=== PATIENT | male | born 1985 | race Caucasian/White ===

== ENCOUNTER 2017-07-02 15:08 | Inpatient (IN) | payer OTHER ==
[~2017-07-02] VITALS: Ht 165.1 cm; Wt 105.2 kg
--- NOTE | 2017-07-02 17:51 | ERA ---
ER Documentation Chief Complaint Date/Time DATE: 07/02/17 TIME: 17:49 Chief Complaint sob when laying down, sent by pmd HPI Is a 32-year-old male with no known medical history sent from primary care clinic to the ER for gradual onset, constant, moderate shortness of breath when lying down at night for the last month. He reports that he awakes in the middle the night after lying flat for minutes to hours with shortness of breath and that his symptoms improve when he sits up. He denies chest pain. He reports having mild nonproductive cough. He reports bilateral posterior shoulder pain. He reports normal urine output. He states that he was told that he has an enlarged heart on x-ray at the clinic today. He reports that he was told he had elevated blood pressure. The last time he saw PMD was more than 5 years ago. ROS All systems reviewed and are negative except as per history of present illness. Medications Home Meds Unable to Obtain Active Prescriptions or Reported Meds Allergies Allergies: Coded Allergies: No Known Allergy (Unverified , 07/02/17) PMhx/Soc Past medical history: None Past surgical history: None Social history: Denies tobacco, drinks occasional alcohol, denies illicit drugs FmHx Family History: diabetes, No coronary disease Physical Exam Vitals Vital Signs Date Time Temp Pulse Resp B/P Pulse Ox O2 Delivery O2 Flow Rate FiO2 07/02/17 21:45 99.0 93 18 143/94 97 Room Air 07/02/17 20:45 98.8 91 16 133/79 98 Room Air 07/02/17 19:46 98.5 100 18 154/121 97 Room Air 07/02/17 18:30 98.8 102 20 167/131 97 Room Air 07/02/17 18:13 2.0 07/02/17 15:29 98.8 104 20 173/117 97 Physical Exam Const: Alert, no acute distress Head: Atraumatic Eyes: Normal Conjunctiva, No pallor, no icterus ENT: Normal External Ears, Nose and Mouth. Mucous membranes moist Neck: Full range of motion..~ No meningismus. Resp: Clear to auscultation bilaterally, No wheezes, no rales Cardio: Regular rate and rhythm, no murmurs Abd: Soft, non tender, non distended. Skin: No petechiae or rashes Back: No midline or flank tenderness Ext: No cyanosis, or edema Neur: Awake and alert, Cranial nerves II through XII intact bilaterally, strength and sensation full in 4 extremities. Psych: Normal Mood and Affect Result Diagram: 07/02/17 1800 07/02/17 1800 Results 24 hrs Laboratory Tests Test 07/02/17 18:00 White Blood Count 13.110^3/ul Red Blood Count 6.0610^6/ul Hemoglobin 16.4g/dl Hematocrit 48.4% Mean Corpuscular Volume 79.9fl Mean Corpuscular Hemoglobin 27.1pg Mean Corpuscular Hemoglobin Concent 33.9g/dl Red Cell Distribution Width 13.8% Platelet Count 24316^3/UL Mean Platelet Volume 10.7fl Neutrophils % 78.1% Lymphocytes % 14.5% Monocytes % 6.1% Eosinophils % 0.3% Basophils % 0.5% Nucleated Red Blood Cells % 0.0/100WBC Lymphocytes # 1.910^3/ul Monocytes # 0.810^3/ul Eosinophils # 0.010^3/ul Basophils # 0.110^3/ul Nucleated Red Blood Cells # 0.010^3/ul Sodium Level 143mmol/L Potassium Level 3.5mmol/L Chloride Level 109mmol/L Carbon Dioxide Level 22mmol/L Anion Gap 16 Blood Urea Nitrogen 22mg/dl Creatinine 1.08mg/dl Glucose Level 104mg/dl Calcium Level 9.6mg/dl Total Bilirubin 0.9mg/dl Direct Bilirubin 0.00mg/dl Indirect Bilirubin 0.9mg/dl Aspartate Amino Transf (AST/SGOT) 42IU/L Alanine Aminotransferase (ALT/SGPT) 77IU/L Alkaline Phosphatase 93IU/L Troponin I 0.042ng/ml B-Type Natriuretic Peptide 3870PG/ML Total Protein 8.1g/dl Albumin 4.5g/dl Globulin 3.60g/dl Albumin/Globulin Ratio 1.25 Current Medications Medications (Trade) Dose Ordered Sig/Kiran Route PRN Reason Start Time Stop Time Status Last Admin Dose Admin Furosemide (Lasix) 40 mg ONCE ONCE IV 07/02/17 20:00 07/02/17 20:01 DC 07/02/17 20:00 Nitroglycerin (Nitroglycerin 2% Oint) 1 inch ONCE ONCE TD 07/02/17 20:00 07/02/17 20:01 DC 07/02/17 20:00 Aspirin (Aspirin) 162 mg ONCE ONCE PO 07/02/17 20:00 07/02/17 20:01 DC 07/02/17 20:00 Labetalol HCl (Labetalol) 10 mg ONCE ONCE IV 07/02/17 20:00 07/02/17 20:01 DC 07/02/17 20:00 Ondansetron HCl (Zofran Inj) 4 mg ER BRIDGE PRN IV NAUSEA AND/OR VOMITING 07/02/17 23:00 07/03/17 22:59 Acetaminophen (Tylenol Tab) 650 mg ER BRIDGE PRN PO MILD PAIN/FEVER 07/02/17 23:00 07/03/17 22:59 Procedures/MDM EKG read by me: Time 1817, rate 109 Rhythm: Sinus tachycardia [place]: Left axis deviation Intervals: Prolonged QTC, left anterior fascicular block QRS: Left ventricular hypertrophy P waves: Biatrial enlargement ST-T waves: no ischemic changes Ectopy: No Q-waves: No Impression: Sinus tachycardia with LVH and biatrial enlargement MDM: Patient is a 32-year-old male who presents with 1 month of positional dyspnea that is consistent with PND. The patient has not had routine medical care, and was found to have significantly elevated blood pressure at an outside clinic. In the ER, he has an EKG that is suggestive of biatrial enlargement and left ventricular hypertrophy. He has diastolic blood pressures as high as 120. He has a chest x-ray that shows mild cardiomegaly. His BNP is greater than 3800. His symptoms are consistent with new onset congestive heart failure. It is likely diastolic heart failure due to poorly controlled hypertension. His troponin is not elevated. He has normal renal function. He was given IV Lasix, transdermal nitroglycerin, and IV labetalol for treatment of his CHF and hypertension. He was given aspirin in case of any ischemic component. His EKG did not appear ischemic. He does not have history of drug abuse. He will be admitted for further cardiac workup and blood pressure control. Departure Diagnosis: Primary Impression: Congestive heart failure Qualified Code: I50.9 - Acute congestive heart failure, unspecified congestive heart failure type Additional Impressions: Hypertensive urgency Paroxysmal nocturnal dyspnea Condition: HERMINIO Avila MD Jul 02, 2017 17:51
[2017-07-02 18:49] LABS: HEMATOCRIT 48.4 % (42.0-52.0); HEMOGLOBIN 16.4 g/dl (14.0-18.0); LYMPHOCYTES % 14.5 % (15.0-51.0); MEAN CORPUSCULAR HEMOGLOBIN 27.1 pg (29.0-33.0); MEAN CORPUSCULAR HGB CONC 33.9 g/dl (32.0-37.0); MEAN CORPUSCULAR VOLUME 79.9 fl (82.0-101.0); MEAN PLATELET VOLUME 10.7 fl (7.4-10.4); MONOCYTES % 6.1 % (0.0-11.0); NEUTROPHILS % 78.1 % (39.0-77.0); PLATELET COUNT 333 10^3/UL (140-440); RED BLOOD COUNT 6.06 10^6/ul (4.70-6.10); RED CELL DISTRIBUTION WIDTH 13.8 % (11.5-14.5); WHITE BLOOD COUNT 13.1 10^3/ul (4.8-10.8)
[2017-07-02 18:50] LABS: BASOPHIL # 0.1 10^3/ul (0.0-0.1); BASOPHILS % 0.5 % (0.0-2.0); EOSINOPHILS % 0.3 % (0.0-7.0); LYMPHOCYTES # 1.9 10^3/ul (0.8-2.9); MONOCYTE # 0.8 10^3/ul (0.3-0.9)
--- NOTE | 2017-07-02 19:07 | RADRPT ---
PROCEDURE: XR Chest. CLINICAL INDICATION: Shortness of breath TECHNIQUE: Single frontal view of the chest was obtained COMPARISON: None FINDINGS: The heart is upper limits of normal in size. The lungs are clear. There is no pleural effusion or pneumothorax. The bones and soft tissue show no acute change. IMPRESSION: No definite abnormalities are identified. RPTAT:AAJJ Tye Davidson Physician Date Time Electronically viewed and signed by Tye Davidson Physician on 07/02/2017 19:07 /
[2017-07-02 19:15] LABS: CALCIUM 9.6 mg/dl (8.4-10.2); CREATININE 1.08 mg/dl (0.61-1.24); POTASSIUM 3.5 mmol/L (3.5-5.1)
[2017-07-02 19:24] LABS: TROPONIN-I 0.042 ng/ml (0.00-0.12)
[2017-07-02 19:36] LABS: ALBUMIN 4.5 g/dl (3.3-4.9); ALBUMIN/GLOBULIN RATIO 1.25; BILIRUBIN,INDIRECT 0.9 mg/dl (0-1.1); BILIRUBIN,TOTAL 0.9 mg/dl (0.2-1.3); TOTAL PROTEIN 8.1 g/dl (6.1-8.1)
[2017-07-02] MEDS ORDERED: NITROGLYCERIN 2% 1 GM OINT PKT TD ONE (20:00)
[2017-07-02] MEDS ORDERED: FUROSEMIDE 40 MG INJ IV ONE (20:00)
[2017-07-02] MEDS ORDERED: LABETALOL HCL 20MG INJ IV ONE (20:00)
[2017-07-02] MEDS ORDERED: ASPIRIN 81 MG TAB PO ONE (20:00)
[2017-07-02 21:45] VITALS: TEMP 99
[2017-07-02] MEDS ORDERED: ACETAMINOPHEN 325 MG TAB PO PRN ×2 (23:00→23:30)
[2017-07-02] MEDS ORDERED: ONDANSETRON 4 MG INJ IV PRN ×2 (23:00→23:30)
[2017-07-02] MEDS ORDERED: NACL 0.9% 3 ML SYG IV SCH (23:30)
[2017-07-02] MEDS ORDERED: BISACODYL (EC) 5 MG TAB PO PRN (23:30)
[2017-07-02] MEDS ORDERED: DOCUSATE SODIUM 100 MG CAP PO PRN (23:30)
[2017-07-03] VITALS (13 sets, daily range): BP systolic 110–166; BP diastolic 58–100; PULSE 95–114; RESP 18–21; Ht 165.1 cm; Wt 105.2 kg
[2017-07-03] MEDS: FAMOTIDINE 20 MG TAB PO SCH ×3 (00:48→20:53)
[2017-07-03 00:56] LABS: TROPONIN-I 0.043 ng/ml (0.00-0.12)
[2017-07-03 00:58] LABS: CK-MB 0.89 ng/ml (0.0-2.4)
--- NOTE | 2017-07-03 06:09 | HP ---
Date/Time of Note Date/Time of Note DATE: 07/03/17 TIME: 05:59 Assessment/Plan VTE Prophylaxis VTE Prophylaxis Intervention: SCD's Lines/Catheters IV [facility] Saline Lock Assessment/Plan Chief Complaint/Hosp Course This is a 32-year-old male being admitted to the telemetry floor for: #1 new onset CHF: Likely secondary to underlying undiagnosed hypertension and/ or sleep apnea and/or viral illness. Patient's BNP was elevated above 3000. Will check 2D echocardiogram. Will order a TSH level, hemoglobin A1c, lipid panel. As patient does not appear to be in severe decompensation I will start him on a low-dose tamika and also on an GHANSHYAM inhibitor. He did receive Lasix ED and I will continue him on 40 mg IV daily for now. Will get a cardiology consultation. Patient likely will also need an outpatient sleep study workup for sleep apnea. Fluid restriction, strict I's/O's #2 obesity: We will check a hemoglobin A1c thyroid panel lipid panel. #3 DVT and GI prophylaxis: SCD, acid tamika Treatment strategy will be implemented as per the clinical course Problems: HPI/ROS Admit Date/Time Admit Date/Time Jul 02, 2017 at 22:45 Hx of Present Illness Chief complaint: Shortness of breath when lying down This is a 32-year-old male with no known medical history sent from primary care clinic to the ER for gradual onset, constant, moderate shortness of breath when lying down at night for the last month. He reports that he awakes in the middle the night after lying flat for minutes to hours with shortness of breath and that his symptoms improve when he sits up. He denies chest pain. He reports having mild nonproductive cough. He reports bilateral posterior shoulder pain. He reports normal urine output. He states that he was told that he has an enlarged heart on x-ray at the clinic today. He reports that he was told he had elevated blood pressure. Also reports that he has been under a lot of stress lately especially secondary to the [place] issue. Denies any fevers however he does report that he had a cough approximately 3 weeks ago but is unsure whether that was secondary to an illness or related to his current condition. He does state that he snores at night. Allergies: NKDA Medications: None ROS Const: As per HPI Eyes : No pain discharge or redness or change in visual acuity ENT: No pain, sore throat, congestion, congestion, dysphagia or discharge Respiratory: As per HPI Cardiovascular: HPI GI : no change in appetite, abdominal pain, nausea, vomiting, diarrhea, constipation, or change in the color his stool Genitourinary: No dysuria, hematuria, flank pain , discharge or CVA tenderness Musculoskeletal: No joint pain, back pain, neck pain, restricted range of motion in neck or joints Skin: No rash, bruising or hives Neuro: No headache, dizziness, syncope, seizure, focal weakness Endocrine: No polyuria, polydipsia, temperature intolerance Psych: No hallucination, depression, anxiety or suicidal ideation PMH/Family/Social Past Medical History Medical History: no pertinent history Past Surgical History Past Surgical Hx: no surgical history Family History Significant Family History: no pertinent family hx Social History Alcohol Use: rarely Smoking Status: Never smoker Drug Use: none Exam/Review of Systems Vital Signs Vitals Vital Signs Date Time Temp Pulse Resp B/P Pulse Ox O2 Delivery O2 Flow Rate FiO2 07/03/17 04:27 95 07/03/17 04:14 97.8 20 110/58 99 07/02/17 23:20 Room Air 07/02/17 18:13 2.0 Exam Exam General: Patient is lying in bed in no acute distress, he does not appear short of breath or orthopnea. HEENT: Atraumatic, normocephalic. The pupils are equal, round and reactive. Extraocular motor are intact Neck: Supple with full range of motion. No rigidity or meningismus Chest: Nontender Lungs: Mild crackles at the bases bilaterally Heart: Normal S1-S2, Regular rhythm and rate. No overt murmur or gallop appreciated Abdomen: Soft , nontender, nondistended , bowel sounds are present. No guarding no rebound tenderness , No masses or organomegaly. No costovertebral temporal angle mass Extremities: Normal to inspection, no edema no cyanosis Neurologic: Normal mental status, speech normal, cranial nerves II through XII are intact, motor and sensory are intact, no focal weakness Additional Comments PROCEDURE: XR Chest. CLINICAL INDICATION: Shortness of breath TECHNIQUE: Single frontal view of the chest was obtained COMPARISON: None FINDINGS: The heart is upper limits of normal in size. The lungs are clear. There is no pleural effusion or pneumothorax. The bones and soft tissue show no acute change. IMPRESSION: No definite abnormalities are identified. RPTAT:AAJJ Tye Davidson Physician Date Time Electronically viewed and signed by Tye Davidson Physician on 07/02/2017 19: 07 MC/ Rhythm: Sinus tachycardia [place]: Left axis deviation Intervals: Prolonged QTC, left anterior fascicular block QRS: Left ventricular hypertrophy P waves: Biatrial enlargement ST-T waves: no ischemic changes Impression: Sinus tachycardia with LVH and biatrial enlargement As per ED physician documentation Labs Result Diagram: 07/02/17 1800 07/02/17 1800 Medications Medications Current Medications Ondansetron HCl (Zofran Inj) 4 mg Q6H PRN IV NAUSEA AND/OR VOMITING; Start 07/02 at 23:30 Aspirin (Aspirin) 81 mg DAILY PO ; Start 07/03/17 at 09:00 Acetaminophen (Tylenol Tab) 650 mg Q6H PRN PO PAIN LEVEL 1-3 OR FEVER; Start at 23:30 Docusate Sodium (Colace) 100 mg Q12H PRN PO CONSTIPATION; Start 07/02/17 at 23: 30 Bisacodyl (Dulcolax) 5 mg DAILY PRN PO CONSTIPATION; Start 07/02/17 at 23:30 Famotidine (Pepcid) 20 mg Q12 PO Last administered on 07/03/17t 00:48; Admin Dose 20 MG; Start 07/02/17 at 23:30 Lisinopril (Zestril) 10 mg DAILY PO ; Start 07/03/17 at 09:00 Carvedilol (Coreg) 3.125 mg BID PO ; Start 07/03/17 at 09:00 Furosemide (Lasix) 40 mg DAILY@06 IV ; Start 07/03/17 at 06:00 KIM NIXON Jul 03, 2017 06:09
[2017-07-03] MEDS: FUROSEMIDE 40 MG INJ IV SCH (06:50)
[2017-07-03 07:39] LABS: ALBUMIN 3.7 g/dl (3.3-4.9); ALBUMIN/GLOBULIN RATIO 1.37; CALCIUM 9.6 mg/dl (8.4-10.2); CHOL/HDL RATIO 5.7 RATIO; CREATININE 1.02 mg/dl (0.61-1.24); MAGNESIUM 1.9 mg/dl (1.7-2.5); POTASSIUM 3.6 mmol/L (3.5-5.1); TOTAL PROTEIN 6.4 g/dl (6.1-8.1); TROPONIN-I 0.057 ng/ml (0.00-0.12)
[2017-07-03 07:49] LABS: CK-MB 0.89 ng/ml (0.0-2.4)
[2017-07-03 08:01] LABS: THYROID STIMULATING HORMONE 3.73 MIU/L (0.465-4.680)
[2017-07-03] MEDS: ASPIRIN 81 MG TAB PO SCH (08:50)
[2017-07-03] MEDS: LISINOPRIL 10 MG TAB PO SCH (08:50)
[2017-07-03] MEDS ORDERED: FUROSEMIDE 40 MG INJ IV SCH (09:00)
--- NOTE | 2017-07-03 13:06 | RADRPT ---
Echocardiogram Report Patient Name: SAMMY RESENDIZ Gender: Male Date: 1985 Study Date: 03-Jul-2017 Virtual Assistant: Chi Naqvi [facility] Location: [facility] Ref. Physician: KIM NIXON Quality: Adequate Procedures: Transthoracic echocardiogram with complete 2D, M-Mode, and doppler examination. Indications: Congestive Heart Failure. 2D/M Mode Doppler Measurement Value Normal Ranges Measurement Value Normal Ranges LVIDd 2D 6.1 3.5 - 5.6 cm AV Peak Stevie 1.1 m/sec LVIDs 2D 5.1 2.1 - 4.1 cm AV Peak PG 4.7 mmHg LVPWd 2D 1.1 0.6 - 1.1 cm LVOT Peak Stevie 0.6 m/sec IVSd 2D 1.1 0.6 - 1.1 cm LVOT Peak PG 1.5 mmHg AoR Diam 2D 2.8 2.0 - 3.7 cm MV E Peak Stevie 1.1 m/sec EDV 2D 189.1 cm3 MV A Peak Stevie 0.3 m/sec ESV 2D 129.9 cm3 MV E/A 3.4 LA Dimen 2D 4.5 2.3 - 4.0 cm MV Decel Time 120 msec MV Decel [place] 9 MV E/A 3.4 TR Peak Stevie 3.3 m/sec TR Peak PG 44.4 mmHg RVSP 47.0 mmHg Findings Left Ventricle: Normal left ventricular cavity size. Normal left ventricular wall thickness. Severe left ventricular systolic dysfunction. Ejection fraction is visually estimated at 20 %. Abnormal Diastolic Function. Right Ventricle: Normal right ventricular size. Normal right ventricular systolic function. Left Atrium: There is mild enlargement of left atrium. Right Atrium: The right atrium is normal in size. Mitral Valve: Mitral valve leaflets appear mildly thickened. Mild mitral annular calcification. Mild mitral valve regurgitation. Aortic Valve: No hemodynamically significant aortic stenosis by doppler. Aortic cusps appear mildly calcified. Trace aortic valve regurgitation. Tricuspid Valve: Normal appearance of the tricuspid valve. Estimated peak PA systolic pressure 47 mmHg. There is mild tricuspid regurgitation. Pulmonic Valve: Normal pulmonic valve appearance. Pericardium: Normal pericardium with no significant pericardial effusion. Aorta: Normal aortic root. IVC: Normal size and normal respiratory collapse consistent with normal right atrial pressure. Conclusions 1.Normal left ventricular cavity size. Normal left ventricular wall thickness. Severe left ventricular systolic dysfunction. Ejection fraction is visually estimated at 20 %. Abnormal Diastolic Function. 2.Normal right ventricular size. Normal right ventricular systolic function. 3.There is mild enlargement of left atrium. 4.The right atrium is normal in size. 5.Mild mitral valve regurgitation. 6.No hemodynamically significant aortic stenosis by doppler. Trace aortic valve regurgitation. 7.Estimated peak PA systolic pressure 47 mmHg. There is mild tricuspid regurgitation. 8.Normal pericardium with no significant pericardial effusion. Electronically Signed By: Sharath Haas 03-Jul-2017 13:05:40 -0700 Patient Name: SAMMY RESENDIZ Study Date: 03-Jul-2017 [id number]
[2017-07-03] MEDS ORDERED: POTASSIUM CHLORIDE (SR) 20 MEQ TAB PO STA (14:57)
[2017-07-03] MEDS ORDERED: MAGNESIUM SULFATE 2 GM/50 ML 50 ML IVPB ONE (15:00)
[2017-07-03] MEDS ORDERED: FUROSEMIDE 40 MG INJ IV ONE (15:00)
--- NOTE | 2017-07-03 15:02 | CONS ---
Date/Time of Note Date/Time of Note DATE: 07/03/17 TIME: 14:58 Assessment/Plan Assessment/Plan Additional Assessment/Plan Acute decompensated systolic congestive heart failure Severe cardiomyopathy with ejection fraction 20%, newly diagnosed Hypertension -Patient with symptoms of decompensated systolic congestive heart failure and newly diagnosed cardiomyopathy. Serial troponins have remained negative, ECG with no significant ischemic abnormalities. Will continue beta-tamika and GHANSHYAM inhibitor, extra dose of IV diuretics this afternoon, maintain potassium above 4.0 and magnesium above 2.0. Check urine drug screen. Continue telemetry monitoring. Consultation Date/Type/Reason Admit Date/Time Jul 02, 2017 at 22:45 Type of Consultation: cv Reason for Consultation Shortness of breath Hx of Present Illness This is a 32-year-old male with no significant past medical history who presents with 2-3 days of worsening shortness of breath and lower extremity edema. Patient symptoms with lying down to sleep at nighttime as well as with exertion and relieved with rest. He denies any exertional chest pain, dizziness or palpitations. He does also complain of lower extremity edema. He denies any fevers or chills. He has been having a cough which is nonproductive. He denies any severe illnesses in the past 6 months or recent travel. Since admission and initiation of IV diuretic therapy, his symptoms have improved significantly. 12 point review of systems was performed with all pertinent positives and negatives mentioned above and all else is negative Past Medical History Medical History: no pertinent history Past Surgical History Past Surgical Hx: no surgical history Family History Significant Family History: other (Mother with recent valve surgery in her 50s) Social History Alcohol Use: rarely Smoking Status: Never smoker Drug Use: none Other Social History Works at [employer] Exam/Review of Systems Vital Signs Vitals Vital Signs Date Time Temp Pulse Resp B/P Pulse Ox O2 Delivery O2 Flow Rate FiO2 07/03/17 13:11 97 07/03/17 12:02 98.3 20 151/96 96 07/02/17 23:20 Room Air 07/02/17 18:13 2.0 Intake and Output 07/02/17 07/02/17 07/03/17 15:00 23:00 07:00 Intake Total 400 ml Balance 400 ml Exam No apparent distress Constitutional: alert, obese, oriented Head: normocephalic Neck: supple Respiratory: other (Coarse breath sounds bilaterally, no wheezing) Cardiovascular: other (S1-S2 heard), regular rate and rhythm, systolic murmur ( Faint) Gastrointestinal: bowel sounds, non-tender, soft Extremities: edema Results Result Diagram: 07/02/17 1800 07/03/17 0618 Results 24 hrs Laboratory Tests Test 07/02/17 18:00 07/02/17 23:20 07/03/17 06:18 White Blood Count 13.1 H Red Blood Count 6.06 Hemoglobin 16.4 Hematocrit 48.4 Mean Corpuscular Volume 79.9 L Mean Corpuscular Hemoglobin 27.1 L Mean Corpuscular Hemoglobin Concent 33.9 Red Cell Distribution Width 13.8 Platelet Count 333 Mean Platelet Volume 10.7 H Neutrophils % 78.1 H Lymphocytes % 14.5 L Monocytes % 6.1 Eosinophils % 0.3 Basophils % 0.5 Nucleated Red Blood Cells % 0.0 Lymphocytes # 1.9 Monocytes # 0.8 Eosinophils # 0.0 Basophils # 0.1 Nucleated Red Blood Cells # 0.0 Sodium Level 143 142 Potassium Level 3.5 3.6 Chloride Level 109 105 Carbon Dioxide Level 22 27 Anion Gap 16 14 Blood Urea Nitrogen 22 H 25 H Creatinine 1.08 1.02 Glucose Level 104 86 Calcium Level 9.6 9.6 Total Bilirubin 0.9 1.0 Direct Bilirubin 0.00 0.00 Indirect Bilirubin 0.9 1.0 Aspartate Amino Transf (AST/SGOT) 42 38 Alanine Aminotransferase (ALT/SGPT) 77 H 74 H Alkaline Phosphatase 93 77 Troponin I 0.042 0.043 0.057 B-Type Natriuretic Peptide 3870 H Total Protein 8.1 6.4 # Albumin 4.5 3.7 Globulin 3.60 H 2.70 Albumin/Globulin Ratio 1.25 1.37 Creatine Kinase 57 59 Creatine Kinase Index 1.6 1.5 Creatinine Kinase MB (Mass) 0.89 0.89 Erythrocyte Sedimentation Rate 10.0 Hemoglobin A1c 5.4 Magnesium Level 1.9 C-Reactive Protein 1.3 H Triglycerides Level 197 H Cholesterol Level 179 LDL Cholesterol, Calculated 109 HDL Cholesterol 31 Cholesterol/HDL Ratio 5.7 Thyroid Stimulating Hormone (TSH) 3.730 Medications Medications Current Medications Ondansetron HCl (Zofran Inj) 4 mg Q6H PRN IV NAUSEA AND/OR VOMITING; Start 07/02 at 23:30 Aspirin (Aspirin) 81 mg DAILY PO Last administered on 07/03/17 08:50; Admin Dose 81 MG; Start 07/03/17 at 09:00 Acetaminophen (Tylenol Tab) 650 mg Q6H PRN PO PAIN LEVEL 1-3 OR FEVER; Start at 23:30 Docusate Sodium (Colace) 100 mg Q12H PRN PO CONSTIPATION; Start 07/02/17 at 23: 30 Bisacodyl (Dulcolax) 5 mg DAILY PRN PO CONSTIPATION; Start 07/02/17 at 23:30 Famotidine (Pepcid) 20 mg Q12 PO Last administered on 07/03/17 08:50; Admin Dose 20 MG; Start 07/02/17 at 23:30 Lisinopril (Zestril) 10 mg DAILY PO Last administered on 07/03/17 08:50; Admin Dose 10 MG; Start 07/03/17 at 09:00 Carvedilol (Coreg) 3.125 mg BID PO Last administered on 07/03/17 08:51; Admin Dose 3.125 MG; Start 07/03/17 at 09:00 Furosemide (Lasix) 40 mg DAILY@06 IV Last administered on 07/03/17 06:50; Admin Dose 40 MG; Start 07/03/17 at 06:00 Procedures Procedures ECG demonstrates sinus tachycardia, biatrial enlargement, left ventricular hypertrophy, nonspecific ST segment abnormalities Sharath Haas DO Jul 03, 2017 15:02
[2017-07-04] VITALS (11 sets, daily range): BP systolic 111–159; BP diastolic 75–98; PULSE 81–112; RESP 19–20
[2017-07-04] MEDS: FUROSEMIDE 40 MG INJ IV SCH (05:21)
[2017-07-04 07:38] LABS: BASOPHIL # 0.1 10^3/ul (0.0-0.1); BASOPHILS % 0.8 % (0.0-2.0); EOSINOPHILS # 0.3 10^3/ul (0.0-0.5); EOSINOPHILS % 2.1 % (0.0-7.0); HEMATOCRIT 48.8 % (42.0-52.0); HEMOGLOBIN 16.1 g/dl (14.0-18.0); LYMPHOCYTES # 3.1 10^3/ul (0.8-2.9); LYMPHOCYTES % 25.3 % (15.0-51.0); MEAN CORPUSCULAR HEMOGLOBIN 26.6 pg (29.0-33.0); MEAN CORPUSCULAR VOLUME 80.5 fl (82.0-101.0); MEAN PLATELET VOLUME 10.6 fl (7.4-10.4); MONOCYTE # 0.8 10^3/ul (0.3-0.9); MONOCYTES % 6.5 % (0.0-11.0); NEUTROPHILS % 64.9 % (39.0-77.0); PLATELET COUNT 345 10^3/UL (140-415); RED BLOOD COUNT 6.06 10^6/ul (4.70-6.10); RED CELL DISTRIBUTION WIDTH 14.4 % (11.5-14.5); WHITE BLOOD COUNT 12.2 10^3/ul (4.8-10.8)
[2017-07-04 08:13] LABS: MAGNESIUM 2.1 mg/dl (1.7-2.5)
[2017-07-04 08:25] LABS: CALCIUM 9.7 mg/dl (8.4-10.2); CREATININE 1.05 mg/dl (0.61-1.24); POTASSIUM 3.6 mmol/L (3.5-5.1)
[2017-07-04 08:38] LABS: PHOSPHORUS 5.3 mg/dl (2.5-4.9)
[2017-07-04] MEDS: FAMOTIDINE 20 MG TAB PO SCH ×2 (09:53→20:40)
[2017-07-04] MEDS: ASPIRIN 81 MG TAB PO SCH (09:53)
[2017-07-04] MEDS: LISINOPRIL 10 MG TAB PO SCH (09:54)
[2017-07-04] MEDS ORDERED: POTASSIUM CHLORIDE (SR) 20 MEQ TAB PO STA (12:19)
--- NOTE | 2017-07-04 12:20 | CONS ---
Date/Time of Note Date/Time of Note DATE: 07/04/17 TIME: 12:16 Assessment/Plan Assessment/Plan Additional Assessment/Plan Acute decompensated systolic congestive heart failure Severe cardiomyopathy with ejection fraction 20%, newly diagnosed Hypertension -Patient with overall improvement in symptoms of shortness of breath. Give additional dose of IV Lasix this afternoon and switch to p.o. tomorrow. Increased dose of Coreg as blood pressure permits. If renal function remains stable, would consider initiation of Aldactone. Will check urine drug screen. Will need ischemic workup at a later time Consultation Date/Type/Reason Admit Date/Time Jul 02, 2017 at 22:45 Initial Consult Date Type of Consultation: cv 24 HR Interval Summary Free Text/Dictation Shortness of breath continues to improve, denies chest pain, palpitations or dizziness. Ambulating with less symptoms Exam/Review of Systems Vital Signs Vitals Vital Signs Date Time Temp Pulse Resp B/P Pulse Ox O2 Delivery O2 Flow Rate FiO2 07/04/17 12:13 101 07/04/17 11:22 98.2 20 145/98 98 07/02/17 23:20 Room Air 07/02/17 18:13 2.0 Intake and Output 07/03/17 07/03/17 07/04/17 15:00 23:00 07:00 Intake Total 290 ml 200 ml Output Total 600 ml Balance 290 ml -400 ml Exam Constitutional: alert, obese, oriented (No apparent distress) Head: normocephalic Respiratory: other (Coarse breath sounds bilaterally, no wheezing) Cardiovascular: other (s1s2), regular rate and rhythm Gastrointestinal: bowel sounds, non-tender, soft Extremities: edema Results Result Diagram: 07/04/17 0650 07/04/17 0650 Results 24 hrs Laboratory Tests Test 07/04/17 06:50 White Blood Count 12.2 H Red Blood Count 6.06 Hemoglobin 16.1 Hematocrit 48.8 Mean Corpuscular Volume 80.5 L Mean Corpuscular Hemoglobin 26.6 L Mean Corpuscular Hemoglobin Concent 33.0 Red Cell Distribution Width 14.4 Platelet Count 345 Mean Platelet Volume 10.6 H Neutrophils % 64.9 Lymphocytes % 25.3 Monocytes % 6.5 Eosinophils % 2.1 Basophils % 0.8 Nucleated Red Blood Cells % 0.0 Neutrophils # (Manual) 7.9 H Lymphocytes # 3.1 H Monocytes # 0.8 Eosinophils # 0.3 Basophils # 0.1 Nucleated Red Blood Cells # 0.0 Sodium Level 141 Potassium Level 3.6 Chloride Level 103 Carbon Dioxide Level 28 Anion Gap 14 Blood Urea Nitrogen 22 H Creatinine 1.05 Glucose Level 90 Calcium Level 9.7 Phosphorus Level 5.3 H Magnesium Level 2.1 B-Type Natriuretic Peptide 1660 H Medications Medications Current Medications Ondansetron HCl (Zofran Inj) 4 mg Q6H PRN IV NAUSEA AND/OR VOMITING; Start 07/02 at 23:30 Aspirin (Aspirin) 81 mg DAILY PO Last administered on 07/04/17 09:53; Admin Dose 81 MG; Start 07/03/17 at 09:00 Acetaminophen (Tylenol Tab) 650 mg Q6H PRN PO PAIN LEVEL 1-3 OR FEVER; Start at 23:30 Docusate Sodium (Colace) 100 mg Q12H PRN PO CONSTIPATION; Start 07/02/17 at 23: 30 Bisacodyl (Dulcolax) 5 mg DAILY PRN PO CONSTIPATION; Start 07/02/17 at 23:30 Famotidine (Pepcid) 20 mg Q12 PO Last administered on 07/04/17 09:53; Admin Dose 20 MG; Start 07/02/17 at 23:30 Lisinopril (Zestril) 10 mg DAILY PO Last administered on 07/04/17 09:54; Admin Dose 10 MG; Start 07/03/17 at 09:00 Carvedilol (Coreg) 3.125 mg BID PO Last administered on 07/04/17 09:53; Admin Dose 3.125 MG; Start 07/03/17 at 09:00 Furosemide (Lasix) 40 mg DAILY@06 IV Last administered on 07/04/17 05:21; Admin Dose 40 MG; Start 07/03/17 at 06:00 Sharath Haas DO Jul 04, 2017 12:20
--- NOTE | 2017-07-04 12:21 | PN ---
Date/Time of Note Date/Time of Note DATE: 07/04/17 TIME: 12:20 Assessment/Plan VTE Prophylaxis VTE Prophylaxis Intervention: ambulation Lines/Catheters IV [facility] Saline Lock Assessment/Plan Chief Complaint/Hosp Course 1. Acute decompensated systolic heart failure. Continue diuresis. Continue beta-blockers and GHANSHYAM inhibitors. 2. Severe cardiomyopathy. Etiology unclear. Continue beta blockers and GHANSHYAM inhibitors. 3. Essential hypertension. Continue antihypertensives. 4.. Obesity. BMI of 38.6 kg/m. Weight reduction advised. 5. Dyslipidemia. Suboptimal LDL with elevated triglycerides. Low-cholesterol diet advised. 6. Fluids, electrolytes, and nutrition. Low-cholesterol diet. 7. DVT prophylaxis. Ambulation. 8. Plan. Continue current management. Await further recommendations from cardiology. Obtain urine drug abuse screen. Case discussed with Dr. Estrada. Problems: Subjective 24 Hr Interval Summary Free Text/Dictation Was up and walking around today. Complains of minimal dyspnea. Denies any chest pain. Exam/Review of Systems Vital Signs Vitals Vital Signs Date Time Temp Pulse Resp B/P Pulse Ox O2 Delivery O2 Flow Rate FiO2 07/04/17 12:13 101 07/04/17 11:22 98.2 20 145/98 98 07/02/17 23:20 Room Air 07/02/17 18:13 2.0 Intake and Output 07/03/17 07/03/17 07/04/17 15:00 23:00 07:00 Intake Total 290 ml 200 ml Output Total 600 ml Balance 290 ml -400 ml Exam General: Obese 32 year-old male lying in bed in no apparent distress. HEENT: Normocephalic, atraumatic. Eyes: Anicteric sclerae, conjunctivae clear. ENT: Nasal septum midline, oral mucosa moist. Neck supple, no JVD noticed. Respiratory: Bilaterally diminished breath sounds. No use of accessory muscles of respiration. No adventitious breath sounds. Cardiovascular: S1, S2 heard. No murmurs or gallops. Abdomen: Soft, nontender, and nondistended. Bowel sounds positive in all 4 quadrants. Genitourinary: Deferred. Extremities: No cyanosis, no clubbing, no edema. Peripheral pulses palpable. Neurologic: Cranial nerves II through XII grossly intact. The patient is awake, alert, and oriented. Skin: Normal skin turgor. No skin rashes. Results Result Diagram: 07/04/17 0650 07/04/17 0650 Results 24 hrs Laboratory Tests Test 07/04/17 06:50 White Blood Count 12.2 H Red Blood Count 6.06 Hemoglobin 16.1 Hematocrit 48.8 Mean Corpuscular Volume 80.5 L Mean Corpuscular Hemoglobin 26.6 L Mean Corpuscular Hemoglobin Concent 33.0 Red Cell Distribution Width 14.4 Platelet Count 345 Mean Platelet Volume 10.6 H Neutrophils % 64.9 Lymphocytes % 25.3 Monocytes % 6.5 Eosinophils % 2.1 Basophils % 0.8 Nucleated Red Blood Cells % 0.0 Neutrophils # (Manual) 7.9 H Lymphocytes # 3.1 H Monocytes # 0.8 Eosinophils # 0.3 Basophils # 0.1 Nucleated Red Blood Cells # 0.0 Sodium Level 141 Potassium Level 3.6 Chloride Level 103 Carbon Dioxide Level 28 Anion Gap 14 Blood Urea Nitrogen 22 H Creatinine 1.05 Glucose Level 90 Calcium Level 9.7 Phosphorus Level 5.3 H Magnesium Level 2.1 B-Type Natriuretic Peptide 1660 H Medications Medications Current Medications Ondansetron HCl (Zofran Inj) 4 mg Q6H PRN IV NAUSEA AND/OR VOMITING; Start 07/02 at 23:30 Aspirin (Aspirin) 81 mg DAILY PO Last administered on 07/04/17 09:53; Admin Dose 81 MG; Start 07/03/17 at 09:00 Acetaminophen (Tylenol Tab) 650 mg Q6H PRN PO PAIN LEVEL 1-3 OR FEVER; Start at 23:30 Docusate Sodium (Colace) 100 mg Q12H PRN PO CONSTIPATION; Start 07/02/17 at 23: 30 Bisacodyl (Dulcolax) 5 mg DAILY PRN PO CONSTIPATION; Start 07/02/17 at 23:30 Famotidine (Pepcid) 20 mg Q12 PO Last administered on 07/04/17 09:53; Admin Dose 20 MG; Start 07/02/17 at 23:30 Lisinopril (Zestril) 10 mg DAILY PO Last administered on 07/04/17 09:54; Admin Dose 10 MG; Start 07/03/17 at 09:00 Carvedilol (Coreg) 3.125 mg BID PO Last administered on 9/8/17at 09:53; Admin Dose 3.125 MG; Start 07/03/17 at 09:00 Furosemide (Lasix) 40 mg DAILY@06 IV Last administered on 07/04/17t 05:21; Admin Dose 40 MG; Start 07/03/17 at 06:00 LYNNE CRAVEN NP Jul 04, 2017 12:21
[2017-07-04] MEDS ORDERED: FUROSEMIDE 40 MG INJ IV ONE (16:00)
[2017-07-04 16:44] LABS: ADD UMIC YES; UR ASCORBIC ACID NEGATIVE (NEGATIVE); UR BACTERIA FEW /HPF (NONE SEEN); UR BILIRUBIN (Dip) NEGATIVE (NEGATIVE); UR BLOOD (Dip) NEGATIVE (NEGATIVE); UR CLARITY SLIGHTLY CLOUDY (CLEAR); UR COLOR YELLOW (YELLOW); UR GLUCOSE (Dip) NEGATIVE (NEGATIVE); UR KETONES (Dip) NEGATIVE (NEGATIVE); UR LEUKOCYTE ESTERASE (Dip) NEGATIVE Leu/ul (NEGATIVE); UR MUCUS FEW /HPF (NONE SEEN); UR NITRITE (Dip) NEGATIVE (NEGATIVE); UR RBC 3 /HPF (0-5); UR SPECIFIC GRAVITY (Dip) 1.006 (1.003-1.030); UR TOTAL PROTEIN (Dip) 2+ mg/dl (NEGATIVE); UR UROBILINOGEN (Dip) NEGATIVE (NEGATIVE)
[2017-07-04 17:36] LABS: BARBITURATES Negative (NEGATIVE); BENZODIAZEPINES Negative (NEGATIVE); CANNABINOIDS Negative (NEGATIVE); COCAINE Negative (NEGATIVE); OPIATES Negative (NEGATIVE)
[2017-07-05] VITALS (7 sets, daily range): BP systolic 120–121; BP diastolic 74–88; PULSE 79–103; RESP 17–20
[2017-07-05 07:17] LABS: BASOPHIL # 0.1 10^3/ul (0.0-0.1); BASOPHILS % 0.8 % (0.0-2.0); EOSINOPHILS # 0.3 10^3/ul (0.0-0.5); EOSINOPHILS % 2.5 % (0.0-7.0); HEMATOCRIT 48.5 % (42.0-52.0); HEMOGLOBIN 15.7 g/dl (14.0-18.0); LYMPHOCYTES # 3.3 10^3/ul (0.8-2.9); LYMPHOCYTES % 28.5 % (15.0-51.0); MEAN CORPUSCULAR HEMOGLOBIN 26.4 pg (29.0-33.0); MEAN CORPUSCULAR HGB CONC 32.4 g/dl (32.0-37.0); MEAN CORPUSCULAR VOLUME 81.5 fl (82.0-101.0); MEAN PLATELET VOLUME 10.7 fl (7.4-10.4); MONOCYTE # 0.8 10^3/ul (0.3-0.9); MONOCYTES % 7.1 % (0.0-11.0); NEUTROPHILS % 60.7 % (39.0-77.0); PLATELET COUNT 310 10^3/UL (140-415); RED BLOOD COUNT 5.95 10^6/ul (4.70-6.10); RED CELL DISTRIBUTION WIDTH 14.1 % (11.5-14.5); WHITE BLOOD COUNT 11.6 10^3/ul (4.8-10.8)
[2017-07-05 07:39] LABS: CALCIUM 9.6 mg/dl (8.4-10.2); CREATININE 1.16 mg/dl (0.61-1.24); MAGNESIUM 2.1 mg/dl (1.7-2.5); PHOSPHORUS 5.8 mg/dl (2.5-4.9); POTASSIUM 3.7 mmol/L (3.5-5.1)
[2017-07-05] MEDS: FAMOTIDINE 20 MG TAB PO SCH (08:59)
[2017-07-05] MEDS ORDERED: FUROSEMIDE 20 MG TAB PO SCH (09:00)
[2017-07-05] MEDS: ASPIRIN 81 MG TAB PO SCH (09:00)
[2017-07-05] MEDS: LISINOPRIL 10 MG TAB PO SCH (09:04)
--- NOTE | 2017-07-05 10:04 | PN ---
Date/Time of Note Date/Time of Note DATE: 07/05/17 TIME: 10:04 Assessment/Plan VTE Prophylaxis VTE Prophylaxis Intervention: SCD's Lines/Catheters IV Catheter Type (from Nrs): Saline Lock Assessment/Plan Assessment/Plan Acute decompensated systolic congestive heart failure Severe cardiomyopathy with ejection fraction 20%, newly diagnosed Hypertension -Patient with overall improvement in symptoms of shortness of breath. po lasix. Increased dose of Coreg as blood pressure permits. If renal function remains stable, would consider initiation of Aldactone. Will check urine drug screen. Will need ischemic workup at a later time -[facility], possible cardiovyte vs cath at that time Subjective 24 Hr Interval Summary Free Text/Dictation The aptient stable overnight Exam/Review of Systems Vital Signs Vitals Vital Signs Date Time Temp Pulse Resp B/P Pulse Ox O2 Delivery O2 Flow Rate FiO2 07/05/17 08:00 79 07/05/17 04:00 98.4 17 120/74 97 07/02/17 23:20 Room Air 07/02/17 18:13 2.0 Intake and Output 07/04/17 07/04/17 07/05/17 14:59 22:59 06:59 Intake Total 900 ml 200 ml Balance 900 ml 200 ml Results Result Diagram: 07/05/17 0639 07/05/17 0639 Results 24 hrs Laboratory Tests Test 07/04/17 12:30 07/05/17 06:39 Urine Color YELLOW Urine Clarity SLIGHTLY CLOUDY A Urine pH 6.0 Urine Specific [place] 1.006 Urine Ketones NEGATIVE Urine Nitrite NEGATIVE Urine Bilirubin NEGATIVE Urine Urobilinogen NEGATIVE Urine Leukocyte Esterase NEGATIVE Urine Microscopic RBC 3 Urine Microscopic WBC 1 Urine Bacteria FEW A Urine Mucus FEW A Urine Hemoglobin NEGATIVE Urine Glucose NEGATIVE Urine Total Protein 2+ H Urine Opiates Screen Negative Urine Barbiturates Negative Urine Amphetamines Screen Negative Urine Benzodiazepines Screen Negative Urine Cocaine Screen Negative Urine Cannabinoids Negative White Blood Count 11.6 H Red Blood Count 5.95 Hemoglobin 15.7 Hematocrit 48.5 Mean Corpuscular Volume 81.5 L Mean Corpuscular Hemoglobin 26.4 L Mean Corpuscular Hemoglobin Concent 32.4 Red Cell Distribution Width 14.1 Platelet Count 310 Mean Platelet Volume 10.7 H Neutrophils % 60.7 Lymphocytes % 28.5 Monocytes % 7.1 Eosinophils % 2.5 Basophils % 0.8 Nucleated Red Blood Cells % 0.0 Neutrophils # (Manual) 7.0 Lymphocytes # 3.3 H Monocytes # 0.8 Eosinophils # 0.3 Basophils # 0.1 Nucleated Red Blood Cells # 0.0 Sodium Level 143 Potassium Level 3.7 Chloride Level 104 Carbon Dioxide Level 28 Anion Gap 15 Blood Urea Nitrogen 26 H Creatinine 1.16 Glucose Level 86 Calcium Level 9.6 Phosphorus Level 5.8 H Magnesium Level 2.1 Medications Medications Current Medications Ondansetron HCl (Zofran Inj) 4 mg Q6H PRN IV NAUSEA AND/OR VOMITING; Start 07/02 at 23:30 Aspirin (Aspirin) 81 mg DAILY PO Last administered on 07/05/17 09:00; Admin Dose 81 MG; Start 07/03/17 at 09:00 Acetaminophen (Tylenol Tab) 650 mg Q6H PRN PO PAIN LEVEL 1-3 OR FEVER; Start at 23:30 Docusate Sodium (Colace) 100 mg Q12H PRN PO CONSTIPATION; Start 07/02/17 at 23: 30 Bisacodyl (Dulcolax) 5 mg DAILY PRN PO CONSTIPATION; Start 07/02/17 at 23:30 Famotidine (Pepcid) 20 mg Q12 PO Last administered on 07/05/17 08:59; Admin Dose 20 MG; Start 07/02/17 at 23:30 Lisinopril (Zestril) 10 mg DAILY PO Last administered on 07/05/17 09:04; Admin Dose 10 MG; Start 07/03/17 at 09:00 Carvedilol (Coreg) 3.125 mg BID PO Last administered on 07/05/17 09:02; Admin Dose 3.125 MG; Start 07/03/17 at 09:00 Furosemide (Lasix) 40 mg DAILY PO Last administered on 07/05/17 09:03; Admin Dose 40 MG; Start 07/05/17 at 09:00 TESFAYE CISNEROS MD Jul 05, 2017 10:04
--- NOTE | 2017-07-05 10:43 | PDOCDIS ---
Discharge Instructions DIAGNOSIS Discharge Diagnosis CHF. CONDITION Patient Condition: Stable HOME CARE INSTRUCTIONS: Diet Instructions: Low Fat /CholesterolSpecial Diet: Low sodium ACTIVITY: Activity Restrictions: Rest between Activity FOLLOW UP/APPOINTMENTS Follow-up Plan Thanh Sandoval MD Specialty: Internal Medicine Office Address: [address] [place] [address] [place] [id number] Office OTHER ORDERS: Other Orders: 1. Take medications as per prescription. Never skip taking medications. 2. Follow her low-cholesterol, low-sodium diet. 3. Resume activities as tolerated. Rest in between activities. 4. Follow-up with your primary care physician at the earliest. If you do not have a primary care physician please call Dr. Thanh Sandoval's office. 5. Please have your primary care physician arrange for outpatient cardiology follow-up at the earliest. SCHOOL/WORK RELEASE May return to School/Work on: Jul 07, 2017 May return to School/Work with: With Restrictions (No strenous work until cardiologists says OK) LYNNE CRAVEN NP Jul 05, 2017 10:43
[2017-07-05] MEDS ORDERED: LAS20 PO (10:44)
[2017-07-05] MEDS ORDERED: CARV3.1260 PO (10:44)
[2017-07-05] MEDS ORDERED: LISI10TA2 PO (10:44)
[2017-07-05] MEDS ORDERED: ASPI81TA3 PO (10:44)
[2017-07-05] MEDS ORDERED: SPIR25TA PO (10:51)
--- NOTE | 2017-07-05 10:55 | DS ---
Date/Time of Note Date/Time of Note DATE: 07/05/17 TIME: 10:53 Discharge Summary Admission/Discharge Info Admit Date/Time Jul 02, 2017 at 22:45 Discharge Date/Time Discharge Diagnosis 1. Acute decompensated systolic heart failure. 2. Severe cardiomyopathy. 3. Essential hypertension. 4. Pulmonary hypertension. 5. Obesity. BMI of 38.6 kg/m. 6. Dyslipidemia. Patient Condition: Stable Consults 1. Sharath Haas DO, Cardiology. 2. Valentina Mercado MD, Cardiology. Procedures CXR IMPRESSION: No definite abnormalities are identified. 2D Echocardiogram Conclusions 1. Normal left ventricular cavity size. Normal left ventricular wall thickness. Severe left ventricular systolic dysfunction. Ejection fraction is visually estimated at 20 %. Abnormal Diastolic Function. 2. Normal right ventricular size. Normal right ventricular systolic function. 3. There is mild enlargement of left atrium. 4. The right atrium is normal in size. 5. Mild mitral valve regurgitation. 6. No hemodynamically significant aortic stenosis by Doppler. Trace aortic valve regurgitation. 7. Estimated peak PA systolic pressure 47 mmHg. There is mild tricuspid regurgitation. 8. Normal pericardium with no significant pericardial effusion. Hx of Present Illness Chief complaint: Shortness of breath when lying down This is a 32-year-old male with no known medical history sent from primary care clinic to the ER for gradual onset, constant, moderate shortness of breath when lying down at night for the last month. He reported that he awakes in the middle the night after lying flat for minutes to hours with shortness of breath and that his symptoms improve when he sits up. He denied any chest pain. He reported having mild nonproductive cough. He reported bilateral posterior shoulder pain. He reported normal urine output. He stated that he was told that he has an enlarged heart on x-ray at the clinic today. He reported that he was told he had elevated blood pressure. Also reported that he has been under a lot of stress lately. Denied any fevers however he did report that he had a cough approximately 3 weeks ago but is unsure whether that was secondary to an illness or related to his current condition. He did state that he snores at night. Allergies: NKDA Medications: None Hospital Course The patient was admitted to inpatient setting. A cardiology consult was obtained. Serial troponins remained negative. The patient's 2D echocardiogram showed ejection fraction of 20% with abnormal diastolic function. The 2D echo also revealed estimated peak PA systolic pressure 47 mmHg. The reason for the patient's underlying cardiomyopathy remains unclear. The patient denied any history of drug use. The patient's urine drug screen was negative. The patient was started on beta-blockers, GHANSHYAM inhibitor's, and loop diuretics. Patient's beta-tamika dosing was increased as appropriate as the patient's blood pressure allowed. The patient was also noticed to have underlying essential hypertension. Cardiology also recommended to start the patient on aldosterone antagonist if the patient's blood pressure is stable and if the patient's renal function remains stable. The patient was noted to be obese with a BMI of 38.6 kg/m. The patient has underlying dyslipidemia with elevated triglycerides and suboptimal LDL. The patient was advised on a low-cholesterol diet. Patient's symptomatology improved with the treatment strategy. However, the reason for the patient's underlying new onset cardiomyopathy remains unclear. The patient needs outpatient cardiology follow-up and repeat 2D echocardiogram within the next 3 months and possible stress test versus cardiac catheterization at that time. The patient had a stable hospital course. The patient was cleared by cardiology to be discharged home. Discharge Instructions 1. Take medications as per prescription. Never skip taking medications. 2. Follow her low-cholesterol, low-sodium diet. 3. Resume activities as tolerated. Rest in between activities. 4. Follow-up with your primary care physician at the earliest. If you do not have a primary care physician please call Dr. Thanh Sandoval's office. 5. Please have your primary care physician arrange for outpatient cardiology follow-up at the earliest. The patient verbalized understanding of his discharge instructions. At this time I would like to thank all the consultants for seeing the patient and providing clinical recommendations. Case discussed with Dr. Estrada. 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 Have your primary care physician arrange for outpatient cardiology follow-up. Primary Care Provider Chun Lindsay Time spent on discharge: > 30 minutes Pending Labs Laboratory Tests Test 07/04/17 12:30 07/05/17 06:39 Urine Color YELLOW (YELLOW) Urine Clarity SLIGHTLY CLOUDY (CLEAR) Urine pH 6.0 (5.0-9.0) Urine Specific [employer] 1.006 (1.003-1.030) Urine Ketones NEGATIVEmg/dL (NEGATIVE) Urine Nitrite NEGATIVEmg/dL (NEGATIVE) Urine Bilirubin NEGATIVEmg/dL (NEGATIVE) Urine Urobilinogen NEGATIVEmg/dL (NEGATIVE) Urine Leukocyte Esterase NEGATIVELeu/ul (NEGATIVE) Urine Microscopic RBC 3/HPF (0-5) Urine Microscopic WBC 1/HPF (0-5) Urine Bacteria FEW/HPF (NONE SEEN) Urine Mucus FEW/HPF (NONE SEEN) Urine Hemoglobin NEGATIVEmg/dL (NEGATIVE) Urine Glucose NEGATIVEmg/dL (NEGATIVE) Urine Total Protein 2+mg/dl (NEGATIVE) Urine Opiates Screen Negative (NEGATIVE) Urine Barbiturates Negative (NEGATIVE) Urine Amphetamines Screen Negative (NEGATIVE) Urine Benzodiazepines Screen Negative (NEGATIVE) Urine Cocaine Screen Negative (NEGATIVE) Urine Cannabinoids Negative (NEGATIVE) White Blood Count 11.610^3/ul (4.8-10.8) Red Blood Count 5.9510^6/ul (4.70-6.10) Hemoglobin 15.7g/dl (14.0-18.0) Hematocrit 48.5% (42.0-52.0) Mean Corpuscular Volume 81.5fl (82.0-101.0) Mean Corpuscular Hemoglobin 26.4pg (29.0-33.0) Mean Corpuscular Hemoglobin Concent 32.4g/dl (32.0-37.0) Red Cell Distribution Width 14.1% (11.5-14.5) Platelet Count 07629^3/UL (140-415) Mean Platelet Volume 10.7fl (7.4-10.4) Neutrophils % 60.7% (39.0-77.0) Lymphocytes % 28.5% (15.0-51.0) Monocytes % 7.1% (0.0-11.0) Eosinophils % 2.5% (0.0-7.0) Basophils % 0.8% (0.0-2.0) Nucleated Red Blood Cells % 0.0/100WBC (0.0-0.0) Neutrophils # (Manual) 7.010^3/ul (1.7-7.5) Lymphocytes # 3.310^3/ul (0.8-2.9) Monocytes # 0.810^3/ul (0.3-0.9) Eosinophils # 0.310^3/ul (0.0-0.5) Basophils # 0.110^3/ul (0.0-0.1) Nucleated Red Blood Cells # 0.010^3/ul (0.0-0.0) Sodium Level 143mmol/L (135-144) Potassium Level 3.7mmol/L (3.5-5.1) Chloride Level 104mmol/L (97-110) Carbon Dioxide Level 28mmol/L (21-31) Anion Gap 15 (8-16) Blood Urea Nitrogen 26mg/dl (7-20) Creatinine 1.16mg/dl (0.61-1.24) Glucose Level 86mg/dl (70-220) Calcium Level 9.6mg/dl (8.4-10.2) Phosphorus Level 5.8mg/dl (2.5-4.9) Magnesium Level 2.1mg/dl (1.7-2.5) LYNNE CRAVEN NP Jul 05, 2017 10:55
== END 2017-07-05 13:15 | disposition home or self-care (01) | DRG 292 ==
LOC: E/R 15:08 → TEL 22:45
PROVIDERS: ADMIT Family Medicine; ATTEND Family Medicine
DX: I50.21 Acute systolic (congestive) heart failure (principal); I42.9 Cardiomyopathy, unspecified; I10 Essential (primary) hypertension; E66.9 Obesity, unspecified; Z68.38 Body mass index [BMI] 38.0-38.9, adult; E78.5 Hyperlipidemia, unspecified
CPT/HCPCS: 36415; 71010; 80048; 80053; 80061; 80307; 81001; 82550; 82553; 83036; 83735; 83880; 84100; 84443; 84484; 85025; 85651; 86140; 93005; 93306; 96374; 96375; J1940; J3475